=== PATIENT | male | born 1940 | race Hispanic/Latino ===

== ENCOUNTER 2020-11-11 13:55 | Emergency (ER) | payer MEDICARE ==
[~2020-11-11] VITALS: Ht 177.8 cm; Wt 99.8 kg
[2020-11-11] MEDS ORDERED: TYLENOL # 31 EA PO (14:27)
[2020-11-12] MEDS ORDERED: TYLENOL # 31 EA PO (11:17)
== END 2020-11-11 14:45 | disposition home or self-care (01) ==
LOC: ER 14:32
DX: U07.1 COVID-19 (principal); R50.9 Fever, unspecified; R05 Cough; I12.9 Hypertensive chronic kidney disease with stage 1 through stage 4 chronic kidney disease, or unspecified chronic kidney disease; E11.22 Type 2 diabetes mellitus with diabetic chronic kidney disease; N18.9 Chronic kidney disease, unspecified
CPT/HCPCS: 99283